=== PATIENT | female | born 1965 | race Caucasian/White ===

== ENCOUNTER 2017-10-08 10:11 | Emergency (ER) | payer OTHER ==
[~2017-10-08] VITALS: Ht 165.1 cm; Wt 68.0 kg
--- NOTE | ~2017-10-08 | EKG ---
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: lianne : 1965 Requested By: Flako Waldrop Order Number: [id number] MD: Ashkan Jarrett Measurements Intervals [place] Rate: 79 P: 66 GA: 149 QRS: -16 QRSD: 94 T: 28 QT: 422 QTc: 484 Interpretive Statements Sinus rhythm Borderline left axis deviation Borderline T abnormalities, anterior leads Compared to ECG 03/25/2004 20:17:46 T-wave abnormality now present Sinus arrhythmia no longer present Electronically Signed On 10-08-2017 10:49:31 CDT by Ashkan Jarrett [email or web address] <ELECTRONICALLY SIGNED> By: Ashkan Jarrett MD 10/08/17 1049 1040 1040 MD DARLENE Corral
[~2017-10-08 10:11] MED LIST: AMBIEN; BACTRIM DS TAB1 EACH PO; GRIFULVIN V500 MG PO; HYDROCHLOROTHIA25 M1 PO; KEPPRA250 MG; NORCO 5-325 TA1 EACH PO
[2017-10-08 11:25] LABS: HEMATOCRIT 38.7 % (37.0-47.0); HEMOGLOBIN 13.1 gm/dL (12.0-15.0); MCH 28.5 pg (26.0-34.0); MCHC 33.8 g/dL (28.0-37.0); MCV 84.3 fL (80.0-100.0); RBC 4.59 mil/uL (4.20-5.00); RDW 14.1 % (10.5-14.5)
[2017-10-08 11:41] LABS: ANION GAP 2 mmol/L (7-16); BUN 20 mg/dL (7-18); CALCIUM 8.8 mg/dL (8.5-10.1); CHLORIDE 106 mmol/L (98-107); CO2 32 mmol/L (21-32); CREATININE 0.9 mg/dL (0.6-1.0); GLUCOSE 96 mg/dL (74-106); POTASSIUM 3.8 mmol/L (3.5-5.1); SODIUM 140 mmol/L (136-145)
[2017-10-08 11:51] LABS: TROPONIN-I <0.06 ng/mL (<0.06)
[2017-10-08 11:55] VITALS: BP 131/89
[2017-10-08] MEDS ORDERED: KEPPRA 500 MG500 M1 PO (12:19)
== END 2017-10-08 12:48 | disposition home or self-care (01) ==
LOC: ER 10:11
PROVIDERS: Emergency Medicine
DX: R55 Syncope and collapse (principal); Z88.0 Allergy status to penicillin; Z88.4 Allergy status to anesthetic agent

== ENCOUNTER 2018-05-30 23:50 | Emergency (ER) | payer OTHER ==
[~2018-05-30] VITALS: Ht 154.9 cm; Wt 46.7 kg
[~2018-05-30 23:50] MED LIST changes: +KEPPRA 500 MG500 M1 PO
[2018-05-31 01:23] LABS: ABSOLUTE NEUTROPHILS 2.7 thou/uL (1.4-8.2); BASOPHILS 0.3 % (0.0-2.0); EOSINOPHILS 3.7 % (0.0-3.0); HEMATOCRIT 38.4 % (37.0-47.0); HEMOGLOBIN 12.8 gm/dL (12.0-15.0); LYMPHOCYTES 16.5 % (24.0-44.0); MCH 27.7 pg (26.0-34.0); MCHC 33.3 g/dL (28.0-37.0); MCV 83.1 fL (80.0-100.0); MONOCYTES 6.9 % (1.0-8.0); PLATELET COUNT 149 thou/uL (150-400); POLYS 72.6 % (36.0-66.0); RBC 4.62 mil/uL (4.20-5.00); RDW 14.2 % (10.5-14.5); WBC 3.8 thou/uL (4.0-11.0)
[2018-05-31 01:29] LABS: CALCIUM 8.7 mg/dL (8.5-10.1); CREATININE 0.9 mg/dL (0.6-1.0); POTASSIUM 3.7 mmol/L (3.5-5.1)
[2018-05-31 02:46] LABS: URINE BILIRUBIN NEGATIVE (Negative); URINE BLOOD TRACE (Negative); URINE CLARITY CLEAR; URINE COLOR YELLOW; URINE GLUCOSE-RANDOM* NEGATIVE (Negative); URINE KETONES NEGATIVE (Negative); URINE LEUKOCYTES-REFLEX TRACE (Negative); URINE NITRITE-REFLEX NEGATIVE (Negative); URINE PROTEIN (DIPSTICK) NEGATIVE (Negative); URINE SPECIFIC GRAVITY >= 1.030 (1.005-1.035); URINE UROBILINOGEN 0.2 E.U./dl (0.2-1.0)
[2018-05-31 02:52] LABS: CASTS None Seen /LPF (None Seen); MUCUS None Seen strn/LPF (None Seen); SQUAMOUS 4-10 Moderate /LPF (0-3)
[2018-05-31 02:53] LABS: BACTERIA-REFLEX 1-9 Few /HPF (None Seen); CRYSTALS None Seen /LPF (None Seen); URINE RBC 0-2 Rare /HPF (0-2); URINE WBC-REFLEX 0-5 Rare /HPF (0-5)
[2018-05-31 06:03] VITALS: BP 111/54
[2018-05-31] MEDS ORDERED: PREDNISONE 20 M20 MG PO (06:07)
--- NOTE | 2018-05-31 08:39 | EKG ---
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: JANETTE : 1965 Requested By: Roxana Marina Order Number: [id number] MD: Oleg Escobar Measurements Intervals [place] Rate: 117 P: 57 CO: 157 QRS: -8 QRSD: 80 T: 30 QT: 333 QTc: 465 Interpretive Statements Sinus tachycardia Nonspecific ST and T wave abnormality Compared to ECG 10/08/2017 10:40:12 Heart rate has increased Electronically Signed On 05-31-2018 8:39:46 BRAND AMBASSADOR by Oleg Escobar [email or web address] ��������������������������������������������� <ELECTRONICALLY SIGNED> ���������������������������������������� By: Oleg Escobar MD, [facility] ��������������������������������������������� 05/31/18 0839 0332 033 Oleg Escobar MD, FACC /EPI
== END 2018-05-31 06:13 | disposition home or self-care (01) ==
LOC: ER 23:50
PROVIDERS: Emergency Medicine
DX: B09 Unspecified viral infection characterized by skin and mucous membrane lesions (principal); R50.9 Fever, unspecified; Z88.0 Allergy status to penicillin; Z88.8 Allergy status to other drugs, medicaments and biological substances; Z88.4 Allergy status to anesthetic agent

== ENCOUNTER 2019-12-24 13:20 | Inpatient (IN) | payer OTHER ==
[~2019-12-24] VITALS: Ht 157.5 cm; Wt 65.8 kg
[~2019-12-24 13:20] MED LIST changes: +PREDNISONE 20 M20 MG PO
[2019-12-24 13:23] VITALS: BP 168/97
[2019-12-24 14:31] LABS: BASOPHILS 0.5 % (0.0-2.0); EOSINOPHILS 1.7 % (0.0-3.0); HEMATOCRIT 42.6 % (37.0-47.0); HEMOGLOBIN 14.3 gm/dL (12.0-15.0); LYMPHOCYTES 27.5 % (24.0-44.0); MCH 27.8 pg (26.0-34.0); MCHC 33.6 g/dL (28.0-37.0); MCV 82.6 fL (80.0-100.0); PLATELET COUNT 267 thou/uL (150-400); POLYS 58.3 % (36.0-66.0); RBC 5.16 mil/uL (4.20-5.00); RDW 13.7 % (10.5-14.5); WBC 6.8 thou/uL (4.0-11.0)
[2019-12-24 14:42] LABS: ANION GAP 12 mmol/L (7-16); BUN 23 mg/dL (7-18); CALCIUM 9.5 mg/dL (8.5-10.1); CHLORIDE 102 mmol/L (98-107); CO2 26 mmol/L (21-32); CREATININE 1.1 mg/dL (0.6-1.0); GLUCOSE 117 mg/dL (74-106); POTASSIUM 3.9 mmol/L (3.5-5.1); SODIUM 140 mmol/L (136-145)
--- NOTE | 2019-12-24 14:45 | EKG ---
[facility] [place] [address] ELECTROCARDIOGRAM REPORT Name: ARAMIS BULL Room #: REG [facility]#: [id number] Admission: 12/24/19 Attend Phys: Discharge: Date of : 61 Report #: [id number] THIS REPORT FOR: cc: Rome Craft MD, Bernard O. 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 : 1965 Requested By: Flako Waldrop Order Number: [id number] MD: Tim Howard Measurements Intervals [place] Rate: 97 P: 77 UT: 146 QRS: -27 QRSD: 91 T: 32 QT: 374 QTc: 475 Interpretive Statements Sinus rhythm LVH with secondary repolarization abnormality Inferior infarct, old Compared to ECG 05/31/2018 03:32:21 Left ventricular hypertrophy now present Early repolarization now present Myocardial infarct finding now present Sinus tachycardia no longer present ST (T wave) deviation no longer present Electronically Signed On 12-24-2019 14:45:46 CDT by Tim Howard [email or web address] <ELECTRONICALLY SIGNED> By: Tim Howard MD, FAC 12/24/19 1445 144 144 Tim Howard MD, [facility] /EPI
[2019-12-24 14:52] LABS: URINE BILIRUBIN 2+ (Negative); URINE BLOOD 1+ (Negative); URINE CLARITY CLEAR; URINE COLOR YELLOW; URINE GLUCOSE-RANDOM* NEGATIVE (Negative); URINE KETONES 2+ (Negative); URINE LEUKOCYTES-REFLEX 1+ (Negative); URINE NITRITE-REFLEX NEGATIVE (Negative); URINE PROTEIN (DIPSTICK) 2+ (Negative)
[2019-12-24 14:53] LABS: ALBUMIN 3.7 g/dL (3.4-5.0); DIRECT BILIRUBIN < 0.1 mg/dL (<0.1-0.2); SGOT 34 U/L (15-37); SGPT 28 U/L (30-65); TOTAL BILIRUBIN 0.4 mg/dL (0.2-1.0); TOTAL PROTEIN 8.4 g/dL (6.4-8.2); TROPONIN-I 0.09 ng/mL (<0.06)
[2019-12-24 14:54] LABS: ICTOTEST (BILI CONFIRMATORY) Positive (Negative)
[2019-12-24 15:00] LABS: SQUAMOUS 4-10 Moderate /LPF (0-3); URINE WBC-REFLEX 6-15 Few /HPF (0-5)
[2019-12-24 15:01] LABS: BACTERIA-REFLEX >30 Many /HPF (None Seen); CRYSTALS None Seen /LPF (None Seen); HYALINE CASTS 4-10 Moderate /LPF (None Seen); URINE RBC 0-2 Rare /HPF (0-2)
[2019-12-24 16:17] VITALS: BP 157/93
--- NOTE | 2019-12-24 16:26 | NUR ---
Attempted to call report to medical nurse. Will call back
[2019-12-24 17:38] VITALS: BP 148/83
[2019-12-24 18:00] VITALS: BP 168/94
--- NOTE | 2019-12-24 18:37 | NUR ---
NEW ADMIT FOR RIGHT TEMPORAL CVA, AMNESIA, CONFUSION, RECURRENT FALLS. ORRIENTED X4, AWAKE, ABLE TO VOICE HER NEEDS. REPORTS FALL ARE RELATED TO TRIPPING OVER THE GARDEN HOSE AND LIVES IN A CLUTTERED HOUSE WITH A ROOMMATE. DENIES SOB, DENIES CHEST PAIN, NST ON TELE. STAND BY ASSIST TO BATHROOM. FALL PRECAUTIONS IN PLACE. RASH TO BILATERAL ARMS. CT AND EEG COMPLETE SEE REPORT. NEUROLOGIST SPOKE TO ER PHYSICIAN WHILE PT WAS IN ER. ADMISSION COMPLETE. CONSENTS SIGHNED, JAYLEENED TO ROOM. CALL LIGHT IN REACH.
[2019-12-24 20:49] VITALS: BP 131/78
--- NOTE | 2019-12-25 03:25 | NUR ---
ASSUMED CARE FROM DAY SHIFT , PT ALERT AND ORIENTED X4 HAVE NO COMPLIANTS , PT AWARE SHE IN THE HOSPITAL , DISCUSSED PLAN OF CARE , BEDE ALARM ON FOR SAFETY. PT RESTED WELL THROUHGOUT HOURLY ROUNDS, WILL REPORT CHANGES OR ABNORMAL FINDINGS.
[2019-12-25 05:45] VITALS: BP 132/96
[2019-12-25 08:30] VITALS: BP 160/88
--- NOTE | 2019-12-25 09:35 | EKG ---
[facility] [place] [address] ELECTROCARDIOGRAM REPORT Name: ARAMIS BULL Room #: 217-P ADM IN M.R.#: [id number] Admission: 12/24/19 Attend Phys: Mack Moore MD Discharge: Date of : 61 Report #: [id number] THIS REPORT FOR: cc: Rome Craft MD, Bernard O. 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 Log: SVETA : 1965 Requested By: Mack Moore Order Number: [id number] MD: Tim Howard Measurements Intervals [place] Rate: 79 P: 53 MS: 148 QRS: -17 QRSD: 97 T: 31 QT: 403 QTc: 463 Interpretive Statements Sinus rhythm Probable left atrial enlargement Left ventricular hypertrophy Compared to ECG 12/24/2019 14:42:27 Early repolarization no longer present Myocardial infarct finding no longer present Electronically Signed On 12-25-2019 9:35:02 CDT by Tim Howard [email or web address] <ELECTRONICALLY SIGNED> By: Tim Howard MD, FAC 12/25/1935 0 0 Tim Howard MD, FAC /EPI
[2019-12-25 11:40] LABS: HEMATOCRIT 43.4 % (37.0-47.0); HEMOGLOBIN 14.1 gm/dL (12.0-15.0); MCH 27.6 pg (26.0-34.0); MCHC 32.4 g/dL (28.0-37.0); RBC 5.1 mil/uL (4.20-5.00); RDW 14.5 % (10.5-14.5); WBC 6.5 thou/uL (4.0-11.0)
[2019-12-25 11:55] LABS: ANION GAP 11 mmol/L (7-16); BUN 20 mg/dL (7-18); CALCIUM 8.9 mg/dL (8.5-10.1); CHLORIDE 103 mmol/L (98-107); CO2 25 mmol/L (21-32); CREATININE 0.8 mg/dL (0.6-1.0); GLUCOSE 104 mg/dL (74-106); SODIUM 139 mmol/L (136-145); TROPONIN-I <0.06 ng/mL (<0.06)
[2019-12-25 12:02] LABS: AMP/METHAMP POSITIVE (Negative); BARBITURATES Negative (Negative); BENZODIAZEPINES Negative (Negative); COCAINE Negative (Negative); METHADONE Negative (Negative); OPIATES POSITIVE (Negative); PCP Negative (Negative)
[2019-12-25 12:03] LABS: POTASSIUM 4.9 mmol/L (3.5-5.1)
[2019-12-25 12:10] VITALS: BP 140/88
[2019-12-25 15:27] VITALS: BP 142/90
--- NOTE | 2019-12-25 16:35 | NUR ---
Met with patient who admits with stroke like gracie. Patient resides in independent home with roommate. [employer] independent with adls. 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 Cont to drive. Supportive family. PCP Dr Craft. Patient progressing with therapy. Anticipate dc home possible outpatient needs. casemgt following
--- NOTE | 2019-12-25 18:39 | NUR ---
ASSUMED CARE OF PT AT SHIFT CHANGE. ASSSESSMENTS CHARTED. MEDS GIVEN PER MAY. PT A&OX4, NO C/O PAIN OR DIZZYNESS. PT BEHAVIOR APPROPRIATE AND PLEASANT. CT COMPLETE. NO DISTRESS NOTED DURING SHIFT. WILL CONTINUE TO MONITOR AND FOLLOW POC.
[2019-12-25 19:25] VITALS: BP 127/83
--- NOTE | 2019-12-26 03:16 | NUR ---
assumed pt care at the chnage of shift, pt is awake, alert and oriented, pleasant, sr on the monitor, denies having concern, denies pain or sob, vss, meds given as per mar, assessments as charted, no acute distress noted, sleeping at this time, will continue to monitor
[2019-12-26 03:48] VITALS: BP 132/76
[2019-12-26 04:58] LABS: CHOLESTEROL 208 mg/dL (<200); HDL CHOLESTEROL 64 mg/dL (>40); LDL CHOLESTEROL 125 mg/dL (<100); TC:HDL 3.3 Ratio (Not establshd); TRIGLYCERIDE 95 mg/dL (<150); VLDL 19 mg/dL (<40)
[2019-12-26 05:07] LABS: GLYCOHEMOGLOBIN (HGB A1C) 5.6 % (4.8-5.6)
[2019-12-26 05:13] LABS: SERUM ASSESSMENT Clear
[2019-12-26 08:02] VITALS: BP 132/84
--- NOTE | 2019-12-26 10:35 | EEG ---
[facility] [place] [address] ELECTROENCEPHALOGRAM Name: ARAMIS BULL Room #: 217-P ADM IN M.R.#: [id number] Admission: 12/24/19 Attend Phys: Mack Moore MD Discharge: Date of : 61 Report #: [id number] THIS REPORT FOR: //name// CC: Rome Moore DATE OF SERVICE: 12/24/2019 This patient is being evaluated for altered mental status. EEG was done by placing the electrode by standard 10-20 system of electrode placement. Both referential and sequential montages were used for recording. Background activity in this patient's EEG is about 10 Hz and 30 microvolt. The patient became drowsy and that is associated with bilateral slowing and vertex sharp waves. Photic stimulation is unremarkable. Throughout the record, no active epileptiform activity was noticed. IMPRESSION: This patient's EEG is intermixed with theta range slowing on both sides. That is a nonspecific finding, which can occur with encephalopathy, effect of psychotropic medication, dementia, drowsiness, etc. EEG is mostly unremarkable and the finding is minimum, if any. Thank you very much for this referral. <ELECTRONICALLY SIGNED> By: Orlando Hoffman MD 12/26/19 1035 1926 30 Orlando Hoffman MD /nt
--- NOTE | 2019-12-26 12:19 | 2DMMODE ---
[facility] [place] [address] 2 D/M-MODE ECHOCARDIOGRAM Name: ARAMIS BULL Room #: 217-P ADM IN M.R.#: [id number] Admission: 12/24/19 Attend Phys: Mack Moore MD Discharge: Date of : 61 Report #: [id number] THIS REPORT FOR: cc: Rome Craft MD, Bernard O. MD Lundgren, Craig H. MD [facility] ~ APPROVED REPORT Study performed: 12/26/2019 10:06:36 EXAM: Comprehensive 2D, Doppler, and color-flow Echocardiogram Patient Location: Echo lab Room #: [facility] Status: routine BSA: 1.67 HR: 85 bpm BP: 132/76 mmHg Rhythm: NSR Other Information Study Quality: Good Indications CVA Echo Enhancing Agent Indication: Rule out Shunt Agent(s) / Amount(s) Used: Agitated Saline 8 cc 2D Dimensions RVDd: 27.21 mm IVSd: 9.97 (7-11mm) LVOT Diam: 20.44 (18-24mm) LVDd: 45.76 mm PWd: 11.19 (7-11mm) Ascending Ao: 38.46 (22-36mm) LVDs: 30.64 (25-40mm) Aortic Root: 36.97 mm Volumes Left Atrial Volume (Systole) Single Plane 4CH: 19.64 mL Aortic Valve AoV Peak Yoel.: 1.45 m/s AO Peak Gr.: 8.38 mmHg LVOT Max P.07 mmHg [facility] [address] [place] [address] 2 D/M-MODE ECHOCARDIOGRAM Name: ARAMIS BULL Room #: 217-P ADM IN M.R.#: [id number] Admission: 12/24/19 Attend Phys: Mack Moore MD Discharge: Date of : 61 Report #: [id number] LVOT Max V: 1.13 m/s JESSICA Vmax: 2.55 cm2 Mitral Valve E/A Ratio: 0.4 MV Decel. Time: 178.11 ms MV E Max Yoel.: 0.43 m/s MV A Yoel.: 1.06 m/s MV PHT: 51.65 ms IVRT: 110.73 ms Pulmonary Valve PV Peak Yoel.: 1.07 m/s PV Peak Gr.: 4.56 mmHg Pulmonary Vein P Vein S: 0.57 m/s P Vein A: 0.25 m/s P Vein D: 0.26 m/s P Vein A Dur.: 106.1 msec P Vein S/D Ratio: 2.19 Tricuspid Valve RAP Estimate: 5.00 mmHg Left Ventricle The left ventricle is normal size. There is normal LV segmental wall motion. There is normal left ventricular wall thickness. The left ventricular systolic function is normal. LVEF is 60-65%. Mild diastolic dysfunction Right Ventricle The right ventricle is normal size. The right ventricular systolic function is normal. Atria The left atrium size is normal. The atrial septum is aneurysmal. Right to left shunting seen on contrast bubble injection, probably related to a patent foramen ovale The right atrium size is normal. Aortic Valve The aortic valve trileaflet, mildly calcified. Mild aortic regurgitation. There is no aortic valvular stenosis. Mitral Valve The mitral valve is normal in structure. There is no mitral valve regurgitation noted. No evidence of mitral valve stenosis. [facility] [address] [place] [address] 2 D/M-MODE ECHOCARDIOGRAM Name: ARAMIS BULL Room #: 217-P ADM IN M.R.#: [id number] Admission: 12/24/19 Attend Phys: Mack Moore MD Discharge: Date of : 61 Report #: [id number] Tricuspid Valve The tricuspid valve is normal in structure. There is no tricuspid valve regurgitation noted. Unable to assess PA pressure. Pulmonic Valve The pulmonary valve is normal in structure. Trace pulmonic regurgitation. Great Vessels Aortic root is mildly dilated. The ascending aorta is mildly dilated. IVC is normal in size and collapses >50% with inspiration. Pericardium There is no pericardial effusion. There is no pleural effusion. <Conclusion> The left ventricular systolic function is normal. There is normal LV segmental wall motion. LVEF is 60-65%. Mild diastolic dysfunction The atrial septum is aneurysmal. Right to left shunting seen on contrast bubble injection, probably related to a patent foramen ovale The aortic valve trileaflet, mildly calcified. Mild aortic regurgitation, no stenosis. The mitral valve is normal in structure. No miitral valve regurgitation. Unable to assess pulmonary artery pressure. There is no pericardial effusion. <ELECTRONICALLY SIGNED> By: Oleg Escobar MD, FACC 12/26/198 17 17 Oleg Escobar MD, FACC /INF
[2019-12-26 15:28] VITALS: BP 125/73
--- NOTE | 2019-12-26 18:48 | NUR ---
STILL REPORTS BL[facility]TS. MULTIPLE TESTING, TAYO TOMORROW. HER MOTHER PHONES RN OFTEN FOR UPDATES. SR PER TELE. FALL PRECAUTIONS IN PLACE.
[2019-12-26 20:12] VITALS: BP 113/72
[2019-12-27 03:27] VITALS: BP 140/73
--- NOTE | 2019-12-27 05:11 | NUR ---
assumed pt care at the change of shift, assessments as charted, sr on the monitor, alert and oriented, makes needs known, denies having concerns, remained npo after midnight for TAYO today, no acute distress noted, will continue to monitor
[2019-12-27 08:00] VITALS: BP 128/85
[2019-12-27 11:08] VITALS: BP 118/74
[2019-12-27] MEDS ORDERED: LIPITOR40 MG PO (11:52)
[2019-12-27] MEDS ORDERED: ASPIR 8181 MG PO (11:52)
[2019-12-27] MEDS ORDERED: NEURONTIN 300M300 M2 PO (11:52)
[2019-12-27] MEDS ORDERED: PEPCID20 MG PO (11:52)
[2019-12-27] MEDS ORDERED: CLOPIDOGREL75 MG PO (11:52)
[2019-12-27 12:00] VITALS: BP 118/74
--- NOTE | 2019-12-27 13:07 | NUR ---
cm f/u with pt re: hh. pt declined hh. pt's mother, who was at bedside try to convince pt to use hh. pt stated, "i know you want it, but mom I dont need it."
== END 2019-12-27 14:50 | disposition home or self-care (01) | DRG 64 ==
LOC: ER 13:20 → 2N 16:01 → EROBS 16:01 → 2N 17:56
PROVIDERS: Emergency Medicine; Psychiatry & Neurology Neurology; ADMIT Internal Medicine; ATTEND Internal Medicine
PROC: B24BZZ4 Ultrasonography of Heart with Aorta, Transesophageal (ICD-10-PCS; principal; 2019-12-27)
DX: I63.89 Other cerebral infarction (principal); G92 Toxic encephalopathy; N39.0 Urinary tract infection, site not specified; Q21.1 Atrial septal defect; I25.3 Aneurysm of heart; I10 Essential (primary) hypertension; G40.409 Other generalized epilepsy and epileptic syndromes, not intractable, without status epilepticus; G47.00 Insomnia, unspecified; E78.5 Hyperlipidemia, unspecified; R77.8 Other specified abnormalities of plasma proteins; F41.9 Anxiety disorder, unspecified; R41.3 Other amnesia; Z79.899 Other long term (current) drug therapy; Z88.0 Allergy status to penicillin; Z88.8 Allergy status to other drugs, medicaments and biological substances; Z86.73 Personal history of transient ischemic attack (TIA), and cerebral infarction without residual deficits
CPT/HCPCS: 10081